=== PATIENT | male | born 1940 | race Caucasian/White ===

== ENCOUNTER 2017-01-11 09:30 | Outpatient (RCR) | payer MEDICARE, BC | END 2017-01-12 10:44 | disposition home or self-care (01) | LOC: WSPT 09:30 | DX: M54.89 Other dorsalgia (principal); M25.851 Other specified joint disorders, right hip; M25.551 Pain in right hip | CPT/HCPCS: G8978-GP; G8979-GP; G8980-GP ==

== ENCOUNTER 2020-03-12 14:33 | Emergency (ER) | payer MEDICARE, BC ==
[~2020-03-12] VITALS: Ht 182.9 cm; Wt 72.7 kg
[2020-03-12 14:40] VITALS: BP 101/67; PULSE 55; TEMP 98.1
[2020-03-12] MEDS ORDERED: ZYLOPRIM 100MG100 MG PO (15:46)
[2020-03-12] MEDS ORDERED: SYNTHROID0.1 MG/TAB PO (15:46)
[2020-03-12] MEDS ORDERED: MAXZIDE-25MG TA1 TAB PO (15:46)
[2020-03-12] MEDS ORDERED: ALTACE 10MG TAB10 MG PO (15:46)
[2020-03-12] MEDS ORDERED: ZOCOR 20MG20 MG PO (15:46)
[2020-03-12 15:49] LABS: COLLECTION METHOD CLEAN CATCH
[2020-03-12 15:55] LABS: HEMATOCRIT 38.5 % (42.0-52.0); HEMOGLOBIN 12.8 g/dl (13.5-18.0); MEAN CELL VOLUME 93 fl (80.0-100.0); MEAN CORPUSCULAR HEMOGLOBIN 31 pg (27.0-31.0); MEAN CORPUSCULAR HGB CONC 33 g/dl (33.0-37.0); MEAN PLATELET VOLUME 10.3 fl (7.4-10.4); PLATELET COUNT 228 K/mm3 (130-400); RED BLOOD COUNT 4.15 M/mm3 (4.20-5.60); REDCELL DISTRIBUTION WIDTH-CV 12.6 % (11.5-14.5)
[2020-03-12 16:01] LABS: MUCOUS Present /lpf; PH 5 (5-8); SQUAMOUS EPITHELIAL 0-2 /hpf; URINE APPEARANCE Clear; URINE BACTERIA Rare /hpf; URINE BILIRUBIN Negative (NEGATIVE); URINE BLOOD Negative (NEGATIVE); URINE COLOR Yellow; URINE GLUCOSE Negative (NEGATIVE); URINE KETONE Negative (NEGATIVE); URINE LEUKOCYTE ESTERASE Negative (NEGATIVE); URINE NITRATE Negative (NEGATIVE); URINE PROTEIN(semi-quant) Negative (NEGATIVE); URINE RBC 0-2 /hpf; URINE UROBILINOGEN Negative (NEGATIVE)
[2020-03-12 16:11] LABS: BAND 2 % (0-10); EOSINOPHIL 1 % (0-4); LYMPHOCYTE 9 % (20.0-51.0); NEUTROPHILS 79 % (42.0-75.2); PLATELET ESTIMATE NORMAL (NORMAL)
[2020-03-12 17:05] LABS: BILIRUBIN,TOTAL 0.8 mg/dL (0.0-1.0); C-REACTIVE PROTEIN 8.1 mg/dL (0.0-0.9); CREATININE, serum 1.95 (0.66-1.25); POTASSIUM 4.8 mmol/L (3.4-5.0); TOTAL PROTEIN 6.9 gm/dL (6.4-8.2)
[2020-03-12] MEDS ORDERED: OMNICEF 300MG300 MG PO (18:22)
== END 2020-03-12 18:45 | disposition home or self-care (01) ==
LOC: COL.ER 14:33
PROVIDERS: Emergency Medicine
DX: N17.9 Acute kidney failure, unspecified (principal); Z20.828 Contact with and (suspected) exposure to other viral communicable diseases

== ENCOUNTER → 2023-01-25 | Outpatient (CLI) | payer MEDICARE, BC ==
[~2023-01-25] MED LIST: ALTACE 10MG TAB10 MG PO; MAXZIDE-25MG TA1 TAB PO; OMNICEF 300MG300 MG PO; SYNTHROID0.1 MG/TAB PO; ZOCOR 20MG20 MG PO; ZYLOPRIM 100MG100 MG PO
== END ==
LOC: COL.RAD 13:26
DX: Z95.0 Presence of cardiac pacemaker (principal)